=== PATIENT | female | born 1945 | race Caucasian/White ===

== ENCOUNTER → 2018-10-28 | Outpatient (CLI) | payer MEDICARE, OTHER ==
[2018-10-28] VITALS (14 sets, daily range): BP systolic 105–166; BP diastolic 50–76; PULSE 61–82
[~2018-10-28] VITALS: Ht 162.6 cm; Wt 53.6 kg
[~2018-10-28] MED LIST: GLUCOPHAGE500 MG/TAB PO; HCTZ 25MG TAB25 MG PO; NORVASC 5MG5 MG/TAB PO; PERCOCET 325 MG1 TA2 PO; TOPROL XL 25MG25 MG PO; ZOCOR 20MG20 MG PO
--- NOTE | 2018-10-28 12:40 | NUR ---
Marlene DIAL, informed Dr Breaux of pts blood pressure. states Ok to proceed.
--- NOTE | 2018-10-28 13:15 | NUR ---
pt to ct per wheelchair. Pt positioned in prone position on table. Monitors applied and O2 on at 2l/nc.
--- NOTE | 2018-10-28 13:25 | NUR ---
Dr Breaux into see pt. Dr Breaux talks with pt.
--- NOTE | 2018-10-28 13:42 | NUR ---
Specimens obtained by Dr Breaux and placed in formalin and RPMI. Specimens labeled.
== END ==
LOC: COL.RAD 12:19
DX: E27.9 Disorder of adrenal gland, unspecified (principal)

== ENCOUNTER → 2018-10-29 | Outpatient (CLI) | payer MEDICARE, OTHER ==
--- NOTE | 2018-10-28 12:35 | NUR ---
DR ACN WAS INFORMED OF BLOOD PRESSURE 166/86 AND HEART RATE 86. NO NEW ORDERS.
== END ==
LOC: COL.RAD 14:13
DX: C34.90 Malignant neoplasm of unspecified part of unspecified bronchus or lung (principal); J44.9 Chronic obstructive pulmonary disease, unspecified; E27.8 Other specified disorders of adrenal gland
CPT/HCPCS: A9585

== ENCOUNTER → 2019-09-26 | Outpatient (CLI) | payer MEDICARE ==
[~2019-09-26] VITALS: Ht 162.6 cm; Wt 52.1 kg
[2019-09-26] VITALS (13 sets, daily range): BP systolic 102–136; BP diastolic 48–83; PULSE 94–110
[~2019-09-26] MED LIST changes: +B-121000 MCG PO; +COLACE 100100 MG/CAP PO; +FOLIC ACID 11 MG/TA1 PO
--- NOTE | 2019-09-26 13:40 | NUR ---
pt to ct per wheelchair, pt positioned in prone position on ct table. O2 on at 2l/nc. Monitors applied.
--- NOTE | 2019-09-26 14:12 | NUR ---
specimen obtained and placed in formalin by Dr Mares. Specimen labeled.
== END ==
LOC: COL.RAD 12:33
DX: C34.11 Malignant neoplasm of upper lobe, right bronchus or lung (principal); E27.8 Other specified disorders of adrenal gland
CPT/HCPCS: 32107

== ENCOUNTER 2020-04-16 16:25 | Inpatient (IN) | payer MEDICARE ==
[~2020-04-16] VITALS: Ht 160 cm; Wt 45.5 kg
[2020-04-16 17:07] LABS: ARTERIAL BLD GAS O2 SATURATION 91.5 % (92-100); ARTERIAL BLOOD GAS BASE EXCESS 5.1 (-2-2); ARTERIAL BLOOD GAS HCO3 28.8 meq/L (22-26); ARTERIAL BLOOD GAS PCO2 38.9 mmHg (35-45); ARTERIAL BLOOD GAS PO2 65.1 mmHg (80-100); ARTERIAL BLOOD GAS pH 7.49 (7.35-7.45)
[2020-04-16 17:30] LABS: MEAN CELL VOLUME 89 fl (80.0-100.0); MEAN CORPUSCULAR HGB CONC 31 g/dl (33.0-37.0); MEAN PLATELET VOLUME 9.1 fl (7.4-10.4); PLATELET COUNT 413 K/mm3 (130-400); RED BLOOD COUNT 2.86 M/mm3 (4.10-5.30); REDCELL DISTRIBUTION WIDTH-CV 21.7 % (11.5-14.5)
[2020-04-16 17:33] LABS: HEMATOCRIT 25.3 % (37.0-47.0); HEMOGLOBIN 7.8 g/dl (12.5-16.0); MEAN CORPUSCULAR HEMOGLOBIN 27 pg (27.0-31.0)
[2020-04-16 17:36] LABS: INR 1.5 (0.8-3.0); PROTHROMBIN TIME 16.9 SECONDS (9.7-12.8)
[2020-04-16 17:38] LABS: PARTIAL THROMBOPLASTIN TIME 38.9 SECONDS (26.0-37.0)
[2020-04-16 17:43] LABS: ALBUMIN 3.8 gm/dL (3.5-5.0); BILIRUBIN,TOTAL 0.8 mg/dL (0.0-1.0); CALCIUM 9.2 mg/dL (8.4-10.2); CREATININE, serum 0.54 (0.52-1.25); POTASSIUM 4.3 mmol/L (3.4-5.0)
[2020-04-16 17:49] LABS: ANISOCYTOSIS 3+; BAND 8 % (0-10); LYMPHOCYTE 3 % (20.0-51.0); NEUTROPHILS 85 % (42.0-75.2); PLATELET ESTIMATE INCREASED (NORMAL)
[2020-04-16 17:50] LABS: HYPOCHROMIA 2+; OVALOCYTES 1+; STOMATOCYTE 2+; TARGET CELLS 1+
[2020-04-16 17:55] LABS: C-REACTIVE PROTEIN 26.8 mg/dL (0.0-0.9); TROPONIN-I 0.324 ng/mL (0.000-0.035)
[2020-04-16 22:00] LABS: COLLECTION METHOD CLEAN CATCH
[2020-04-16 22:12] LABS: MUCOUS Present /lpf; PH 6 (5-8); SQUAMOUS EPITHELIAL 0-2 /hpf; URINE APPEARANCE Cloudy; URINE BACTERIA Rare /hpf; URINE BILIRUBIN Negative (NEGATIVE); URINE BLOOD Negative (NEGATIVE); URINE COLOR Yellow; URINE GLUCOSE Negative (NEGATIVE); URINE KETONE Negative (NEGATIVE); URINE LEUKOCYTE ESTERASE 3+ (NEGATIVE); URINE NITRATE Negative (NEGATIVE); URINE PROTEIN(semi-quant) 1+ (NEGATIVE); URINE RBC >50 /hpf; URINE UROBILINOGEN Negative (NEGATIVE)
[2020-04-17] VITALS (334 sets, daily range): BP systolic 105–126; BP diastolic 52–69; PULSE 98–114; TEMP 98.5–99.4; O2SAT 80–99
--- NOTE | 2020-04-17 11:52 | NUR ---
Patient arrives to ICU 8 via stretcher from ED. Stands and transfers self to bed. Monitors applied and call light given. Heparin infusing per pump.
--- NOTE | 2020-04-17 12:30 | NUR ---
Spoke with Vania Bruce about patient's Heparin infusion and HepXA results. Heparin infusing at 150 units/hour on admission to ICU, HepXA at 1049 = 0.0. Pharmacy recommends rebolus with 1,000 units and start infusion at 600 units/hour and check HepXA in 6 hours.
[2020-04-17 15:40] LABS: BASO % 0.3 % (0.0-2.0); EOS # 0.2 (0.0-0.7); GRAN # 13.6 (1.4-6.5); GRAN % 86.3 % (42.2-75.2); LYMPH # 0.6 (1.2-3.4); LYMPH % 3.5 % (20.0-51.0); MEAN CELL VOLUME 90 fl (80.0-100.0); MEAN CORPUSCULAR HGB CONC 30 g/dl (33.0-37.0); MEAN PLATELET VOLUME 9.1 fl (7.4-10.4); MONO # 1.3 (0.1-0.6); MONO % 8.4 % (1.7-9.3); PLATELET COUNT 475 K/mm3 (130-400); REDCELL DISTRIBUTION WIDTH-CV 21.5 % (11.5-14.5)
--- NOTE | 2020-04-17 15:40 | NUR ---
Vancomycin Initial Dosing Pharmacy Note Ordering provider: Jose Manuel Garg MD Indication/duration: uti,rt hilar/rul mass w/ collapse, 7 days LABS: SCr 0.54, CrCl~41, GFR 110 Recommendation: Will continue with Vancomycin 750 mg IV q12h. Pharmacy will continue to monitor and check a Vancomycin trough on 04/19/20. Loading dose: 1.5 grams Maintenance dose: 750 mg every 12 hours Trough goal: 15-20 ug/mL
[2020-04-17 15:43] LABS: HEMATOCRIT 23.5 % (37.0-47.0); HEMOGLOBIN 7.1 g/dl (12.5-16.0); MEAN CORPUSCULAR HEMOGLOBIN 27 pg (27.0-31.0)
[2020-04-17 15:52] LABS: CALCIUM 8.4 mg/dL (8.4-10.2); CREATININE, serum 0.35 (0.52-1.25); POTASSIUM 4.1 mmol/L (3.4-5.0)
--- NOTE | 2020-04-17 21:00 | NUR ---
Updated family via telephone regarding patient status. All questions and concerns addressed at this time.
[2020-04-18] VITALS (595 sets, daily range): BP systolic 111–149; BP diastolic 52–78; PULSE 59–125; TEMP 97.6–98.9; O2SAT 84–100
--- NOTE | 2020-04-18 01:24 | NUR ---
Picked up unit of PRBC from lab. [employer] system is currenlty on down time. Unit verified per protocol with labor commissioner.
--- NOTE | 2020-04-18 01:28 | NUR ---
Transfusion of 1 PRBC initiated; verified by two RN's at bedside. Patient alert and oriented in no distress. Will continue to monitor at bedside.
--- NOTE | 2020-04-18 02:11 | NUR ---
Discussed with hospitalist regarding patient status; patient has course lung sounds in bases and is short of breath with tachycardia. Patient does not appear to be in distress No new orders at this time. Plan for thoracentesis in the morning.
--- NOTE | 2020-04-18 02:30 | NUR ---
Resting in bed; VS stable. No signs of infusion complications at this time. Will continue to monitor.
[2020-04-18 03:17] LABS: HEMOGLOBIN 6.6 g/dl (12.5-16.0)
[2020-04-18 03:18] LABS: HEMATOCRIT 21.9 % (37.0-47.0)
--- NOTE | 2020-04-18 03:45 | NUR ---
Lab notified nurse that hospitalist put order in for 1 unit of irradiated PRBC's, however patient is currenlty receiving infusion with non-irradiated PRBC's. This nurse received a telephone order for 1 unit PRBC's with no specification for irradiated cells. [employer] was down at the time the telephone order was received. Hospitalist had back ordered the unit of irradiated cells into the computer when meditech was available again. Hospitalist notified; no further orders will continue to monitor for and transfusion related reactions.
--- NOTE | 2020-04-18 04:57 | NUR ---
Transfusion complete; Patient tolerated well. No concerns at this time.
[2020-04-18 05:49] LABS: BASO # 0.1 (0.0-0.2); BASO % 0.4 % (0.0-2.0); EOS # 0.1 (0.0-0.7); GRAN # 10.3 (1.4-6.5); LYMPH # 0.5 (1.2-3.4); LYMPH % 4.2 % (20.0-51.0); MEAN CELL VOLUME 89 fl (80.0-100.0); MEAN CORPUSCULAR HGB CONC 32 g/dl (33.0-37.0); MEAN PLATELET VOLUME 8.8 fl (7.4-10.4); MONO # 1.4 (0.1-0.6); MONO % 10.9 % (1.7-9.3); PLATELET COUNT 496 K/mm3 (130-400); RED BLOOD COUNT 2.85 M/mm3 (4.10-5.30); REDCELL DISTRIBUTION WIDTH-CV 18.9 % (11.5-14.5)
[2020-04-18 05:55] LABS: HEMATOCRIT 25.3 % (37.0-47.0); MEAN CORPUSCULAR HEMOGLOBIN 28 pg (27.0-31.0)
[2020-04-18 06:00] LABS: CREATININE, serum 0.29 (0.52-1.25); POTASSIUM 3.7 mmol/L (3.4-5.0)
--- NOTE | 2020-04-18 09:09 | NUR ---
A palliative care consult was ordered for the patient. Entry Level Account Representative contacted Sofya Sow, Palliative Care nurse and she will visit with the patient this day.
--- NOTE | 2020-04-18 10:00 | NUR ---
To US via wheelchair with tech for scheduled thoracentesis with Radiologist
[2020-04-18 11:23] LABS: PLEURAL FLUID RBC 2000 /mm3 (0-0); PLEURAL FLUID WBC 3625 /mm3
[2020-04-18 11:30] LABS: PLEURAL FLUID APPEARANCE HAZY; PLEURAL FLUID COLOR YELLOW
[2020-04-18 12:09] LABS: GLUCOSE,PLEURAL FLUID 94 mg/dL; TOTAL PROTEIN,PLEURAL FLUID 3.6 gm/dL
--- NOTE | 2020-04-18 12:24 | NUR ---
Initial visit; Patient thanked Pacs Specialist for looking in on her, offering God's blessings and keeping her in Pacs Specialist's prayers.
--- NOTE | 2020-04-18 12:46 | NUR ---
Met with pt over lunch today. Lisa is a very positive and upbeat person upon presentation who is dealing with the loss of her in February of this year along with her lung cancer which is no longer responding to Gemzar very well. She reports that Dr Lopez had told her that they would wait for the next PET scan. Her granddaughter is living with her in [place] and has been there about 4 months. She provides care and assistance including driving her to her appointments. Her daughter lives in [place] and is an RN. Her son lives in [place]. She reports getting support not only from family but also from her fellow oncology patients that she sees every week at Dr Lopez's infusion room. She recognizes that her cancer has progressed some and that at some point she will not be able to continue chemotherapy and that her will follow this but at this point she would choose to continue with chemotherapy if it is an option for her. She enjoys reading and watching TV at home and enjoys talking with her family members. We did talk briefly about her fluid on the lung and that if this were to continue to be a problem, that there is a drainage tube that could be placed to allow her to drain this fluid at home when needed. She was asked if she would want to change the direction of her care to focus more on comfort vs treatment and at this time, she would wish to continue with treatment. She was tiring from talking and trying to eat her lunch, so I told her we could talk more tomorrow.
--- NOTE | 2020-04-18 13:36 | NUR ---
Tool Filer Hand attempted to meet with the patient to complete intake. The patient is very tired and was hard to rouse. SW contacted the patient's granddaughter, Juliana Nowak #[phone] to complete intake. The patient lives in [place] with Juliana. Juliana lives there for support as needed. The patient's on March 09 of this year. The patient has a cane and walker that belonged to but she does not need them. She is independent. Per EMR the patient's PCP is Dr. Dorado and the patient sees Dr. Lopez for weekly (Wednesdays) chemo treatments. The [facility] in [place]. The patient does not have advanced directives. The patient has two living children, Roma and Charlie, #[phone] and #[phone], respectively. They do not live locally. Roma lives in [place], [place] and Charlie in [place]. The current discharge plan is for the patient to return home with Juliana. PT/OT ordered for the patient.
[2020-04-18 17:32] LABS: HEMATOCRIT 24.1 % (37.0-47.0); HEMOGLOBIN 7.7 g/dl (12.5-16.0)
[2020-04-19] VITALS (421 sets, daily range): BP systolic 132–143; BP diastolic 63–83; PULSE 93–110; TEMP 97.8–98.3; O2SAT 81–98
[2020-04-19 04:22] LABS: BASO % 0.3 % (0.0-2.0); EOS # 0.1 (0.0-0.7); EOS % 1.1 % (0-4.0); GRAN # 8.3 (1.4-6.5); GRAN % 81.1 % (42.2-75.2); LYMPH # 0.6 (1.2-3.4); LYMPH % 5.5 % (20.0-51.0); MEAN CELL VOLUME 90 fl (80.0-100.0); MEAN CORPUSCULAR HGB CONC 32 g/dl (33.0-37.0); MEAN PLATELET VOLUME 8.6 fl (7.4-10.4); MONO # 1.2 (0.1-0.6); MONO % 11.3 % (1.7-9.3); PLATELET COUNT 532 K/mm3 (130-400); RED BLOOD COUNT 2.52 M/mm3 (4.10-5.30); REDCELL DISTRIBUTION WIDTH-CV 19.5 % (11.5-14.5)
[2020-04-19 04:23] LABS: HEMATOCRIT 22.7 % (37.0-47.0); HEMOGLOBIN 7.2 g/dl (12.5-16.0); MEAN CORPUSCULAR HEMOGLOBIN 29 pg (27.0-31.0)
[2020-04-19 04:37] LABS: CREATININE, serum 0.26 (0.52-1.25); POTASSIUM 3.1 mmol/L (3.4-5.0)
[2020-04-19 14:21] LABS: HEMATOCRIT 22.4 % (37.0-47.0); HEMOGLOBIN 7.1 g/dl (12.5-16.0)
--- NOTE | 2020-04-19 14:45 | NUR ---
Met with patient at bedside and then briefly with her granddaughter, Juliana, who had just arrived. Pt reports that overall she is feeling better. She did not sleep well last night but has been dozing through the day. Lisa did tell me that she had a DPOA-HC completed at [facility]. She said it probably named her and then her daughter as decision makers as DPOA-HC. I talked with Erna about this and she is calling to try to get copy for pt's records here. Pt does report that she would consider home health at discharge, especially since she is thinking that she would probably need 02 at home now. Is feeling weaker than her "usual" and would be open to PT/OT to help her regain her strength. At this point she denies further needs. Will continue to follow.
--- NOTE | 2020-04-19 14:49 | NUR ---
Warehouse Driver met with the patient and the patient's granddaughter, Juliana to revisit the discharge plan. The plan is to return home with Juliana. SW discussed the benefits of home health services and provided Medicare.[facility]'s list of agencies that serve the [facility]. The patient is undecided if she wants home health. ALONSO collaborated the above information with the patient's nurse.
--- NOTE | 2020-04-19 16:40 | NUR ---
Bedside report given to JAYRO Guevara Pt and belongings transferred to Surgical room 324 via acc by RN.
--- NOTE | 2020-04-19 16:45 | NUR ---
PATIENT ARRIVED TO ROOM 324 VIA WHEELCHAIR FROM ICU 8. PATIENT SETTELED INTO ROOM. 02 VIA NASAL CANNULA AT 3L. PATIENT IV ABX INFUSING TO RIGHT CHEST PORTACATH. TELE IN PLACE. CALL LIGHT WITHIN REACH. PATIENT DENIES ANY NEEDS AT THIS TIME.
--- NOTE | 2020-04-19 18:20 | NUR ---
FRANKIE GAY CALLED AND NOTIFIED OF THE PATIENTS VANC TROUGH RESULT OF 6.0. NO VANC IS CURRENTLY ON THE PATIENTS EMAR. NO ORDERS GIVEN AT THIS TIME.
--- NOTE | 2020-04-19 20:50 | NUR ---
Pt. sitting up in bed watching TV at this time. Pt. is A&OX3, assessment complete. INT to lt. forearm patent, PORT to rt. chest patent. Pt. denies pain or other needs, call light within reach.
[2020-04-20] VITALS (11 sets, daily range): BP systolic 106–156; BP diastolic 57–84; PULSE 80–103; TEMP 97.3–98.2
--- NOTE | 2020-04-20 07:30 | NUR ---
Patient reports shortness of air. Vss. O2 stats stable with 3L O2. Notified hospitalsit . Breathing treatment ordered & RT notifed.
[2020-04-20 07:46] LABS: BASO % 0.3 % (0.0-2.0); EOS # 0.2 (0.0-0.7); GRAN # 8.4 (1.4-6.5); GRAN % 78.3 % (42.2-75.2); LYMPH # 0.8 (1.2-3.4); LYMPH % 7.2 % (20.0-51.0); MEAN CELL VOLUME 91 fl (80.0-100.0); MEAN CORPUSCULAR HGB CONC 31 g/dl (33.0-37.0); MEAN PLATELET VOLUME 8.5 fl (7.4-10.4); MONO # 1.2 (0.1-0.6); MONO % 11.5 % (1.7-9.3); PLATELET COUNT 616 K/mm3 (130-400); RED BLOOD COUNT 2.48 M/mm3 (4.10-5.30); REDCELL DISTRIBUTION WIDTH-CV 19.6 % (11.5-14.5)
[2020-04-20 07:55] LABS: CALCIUM 8.5 mg/dL (8.4-10.2); CREATININE, serum 0.23 (0.52-1.25); MAGNESIUM 1.6 mg/dL (1.6-2.3); POTASSIUM 3.1 mmol/L (3.4-5.0)
[2020-04-20 08:11] LABS: HEMATOCRIT 22.6 % (37.0-47.0); MEAN CORPUSCULAR HEMOGLOBIN 28 pg (27.0-31.0)
--- NOTE | 2020-04-20 08:15 | NUR ---
Patient resting in bed with complaints of shortness of breath and pain in her back. We got patient some pain medication. Patient got up to use the bathroom with assisstance. Patient was incontinent of stool in breif. New foam dressing was placed on Coccyx. Will make sure to reposition and continue to monitor. Stool was black. Patient sat in chair and requested oatmeal for breakfast.
--- NOTE | 2020-04-20 11:38 | NUR ---
Patient is up in chair and reports feeling much better. Breathing is slower and unlabored.
--- NOTE | 2020-04-20 13:40 | NUR ---
Hospitalist team rounded, plan of care reviewed. verified to given LRBC - did not order for it to be irratated.
--- NOTE | 2020-04-20 14:45 | NUR ---
Spoke with Mel Nance. Patient granddaughter reports patient had chemo [address] Virgen again verified to given LRBC-not irratiated.
--- NOTE | 2020-04-20 15:03 | NUR ---
rounded and reviewed plan of care. Started a blood transfusion following protocol. Patient's grandaughter has been at bedside. Patient has no complaints or concers.
--- NOTE | 2020-04-20 15:29 | NUR ---
In to see Lisa today. She reports not feeling quite as good today with some shortness of breath and also some discomfort at IV site and on her bottom. She reports that the hospitalist today talked with her daughter by phone and her daughter is going to come up from [place] to see her. While yesterday she was very happy and calm, today she appears more tense and concerned. yesterday she told me that the bone mets, adrenal lesion all had been present almost from her diagnosis so she was not too concerned. I think today she has seen these things differently. Will follow up on Thursday to see her daughter and what they are thinking together.
--- NOTE | 2020-04-20 16:24 | NUR ---
Senior Business Development Manager followed up with patient and patient's granddaughter about Home Health. Patient states she is still discussing plans with her daughter and has not made any decisions at this time. SW to continue to follow.
--- NOTE | 2020-04-20 18:18 | NUR ---
Ended blood transfusion. Patient tolerated transfusion well with no complaints. Patient eating dinner. Gave patient pain medication.
[2020-04-20 20:10] LABS: HEMATOCRIT 26.1 % (37.0-47.0); HEMOGLOBIN 8.3 g/dl (12.5-16.0)
[2020-04-21] VITALS: BP 135/67; PULSE 91; TEMP 97.9
[2020-04-21 04:00] VITALS: BP 149/72; PULSE 105; TEMP 97.8
--- NOTE | 2020-04-21 06:54 | NUR ---
report given to Rayne, and JAYRO Robert.
[2020-04-21 07:59] LABS: BASO # 0.1 (0.0-0.2); BASO % 0.5 % (0.0-2.0); EOS # 0.4 (0.0-0.7); EOS % 3.4 % (0-4.0); GRAN # 7.9 (1.4-6.5); GRAN % 76.9 % (42.2-75.2); LYMPH # 0.7 (1.2-3.4); LYMPH % 6.9 % (20.0-51.0); MEAN CELL VOLUME 91 fl (80.0-100.0); MEAN CORPUSCULAR HGB CONC 32 g/dl (33.0-37.0); MEAN PLATELET VOLUME 8.7 fl (7.4-10.4); MONO # 1.2 (0.1-0.6); MONO % 11.7 % (1.7-9.3); PLATELET COUNT 569 K/mm3 (130-400); RED BLOOD COUNT 2.98 M/mm3 (4.10-5.30); REDCELL DISTRIBUTION WIDTH-CV 18.5 % (11.5-14.5)
[2020-04-21 08:04] VITALS: BP 133/93; PULSE 97; TEMP 98
[2020-04-21 08:11] LABS: CALCIUM 8.5 mg/dL (8.4-10.2); CREATININE, serum 0.25 (0.52-1.25); POTASSIUM 3.7 mmol/L (3.4-5.0)
[2020-04-21 08:23] LABS: HEMATOCRIT 27.2 % (37.0-47.0); HEMOGLOBIN 8.7 g/dl (12.5-16.0); MEAN CORPUSCULAR HEMOGLOBIN 29 pg (27.0-31.0)
--- NOTE | 2020-04-21 11:00 | NUR ---
Patient resting in bed. Got up to use bedside commode. Daughter is coming in from [place] to help make decision about her plan of care. Called malt house operator and got permission for an extra visitor.
[2020-04-21 12:02] VITALS: BP 110/58; PULSE 90; TEMP 98.2
--- NOTE | 2020-04-21 16:17 | NUR ---
Patient up to chair. She is in good spirits. Steady gait with walker. SHe used commode & voided, no stool. She seems stronger today. Granddaughter visitied this afternoon. Assisted with full bed bath & fresh linens. Will monitor.
[2020-04-21 16:26] VITALS: BP 139/67; PULSE 91; TEMP 97.9
--- NOTE | 2020-04-21 18:51 | NUR ---
Patient had another loose stool. She did well with dinner. Resting in bed. Will report off to night nurse.
[2020-04-21 19:34] VITALS: BP 153/80; PULSE 115; TEMP 98.3
--- NOTE | 2020-04-21 21:17 | NUR ---
PT IN BED. IS ALERT AND ORIENTED X4. HAS RT PORT ACCESSED, FLUSHES WELL WITH GOOD BLOOD RETURN. SL TO LEFT FOREARM PAINFUL TO FLUSH, DC'D. TAKES HS MEDS INCLUDING PERCOCET 1 TAB FOR PAIN TO LEFT LOWER BACK. ASSISTED TO BSC, VOIDS AND BACK TO BED. WEARING OXYGEN AT 2L/NC. HAS MEPILEX TO COCCYX.
[2020-04-22] VITALS: BP 127/63; PULSE 101; TEMP 98
[2020-04-22 04:00] VITALS: BP 147/63; PULSE 97; TEMP 98.8
--- NOTE | 2020-04-22 05:30 | NUR ---
ASSISTED TO BSC, VOIDS AND BACK TO BED WITH NOTED SHORTNESS OF BREATH. REPORTS HAVING A GOOD NIGHT SLEEP.
[2020-04-22 07:30] VITALS: BP 149/70; PULSE 107; TEMP 98.4
[2020-04-22 12:26] VITALS: BP 137/73; PULSE 103; TEMP 99.1
--- NOTE | 2020-04-22 16:11 | NUR ---
SW was called to assist patient and granddaughter with questions they had in regards to home health services. Granddaughter Juliana stated that they had decided that they would like to proceed with home health services through [facility]. Granddaughter also stated that upon discharge patient would be needing a bedside commode as well as O2. ALONSO provided documentation will be faxed over to agency for review. ALONSO faxed patient information to [facility] home health for review. ALONSO will continue to follow.
[2020-04-22 17:20] VITALS: BP 140/75; PULSE 97; TEMP 98.6
[2020-04-22 20:00] VITALS: BP 112/57; PULSE 95; TEMP 97.6
--- NOTE | 2020-04-22 22:00 | NUR ---
PT IN BED, HAS BEEN UP TO BSC SEVERAL TIMES TO URINATE. IS ALERT AND ORIENTED X4. HAS RT PORT THAT FLUSHES WELL. TAKES PERCOCET AT THIS TIME FOR BACK PAIN. WEARING OXYGEN AT 2L/NC, DYSPNEA WITH ACTIVITY. SCDS APPLIED.
[2020-04-23] VITALS (15 sets, daily range): BP systolic 115–138; BP diastolic 49–70; PULSE 82–226; TEMP 97.8–98.7
--- NOTE | 2020-04-23 05:00 | NUR ---
LAB WORK DRAWN FROM RT PORT. PT HAS BEEN UP TO BSC WITH ONE ASSIST THIS SHIFT. OFFERS NO CONCERNS AT THIS TIME.
[2020-04-23] MEDS ORDERED: PLAVIX 75MG TAB75 MG PO (08:09)
[2020-04-23] MEDS ORDERED: PROTONIX 40MG T40 MG PO (08:10)
[2020-04-23 09:01] LABS: BASO % 0.5 % (0.0-2.0); EOS # 0.3 (0.0-0.7); EOS % 4.3 % (0-4.0); GRAN # 5.4 (1.4-6.5); GRAN % 68.4 % (42.2-75.2); LYMPH # 0.9 (1.2-3.4); LYMPH % 11.3 % (20.0-51.0); MEAN CELL VOLUME 90 fl (80.0-100.0); MEAN CORPUSCULAR HGB CONC 32 g/dl (33.0-37.0); MEAN PLATELET VOLUME 8.7 fl (7.4-10.4); MONO # 1.2 (0.1-0.6); MONO % 14.9 % (1.7-9.3); PLATELET COUNT 556 K/mm3 (130-400); RED BLOOD COUNT 3.26 M/mm3 (4.10-5.30); REDCELL DISTRIBUTION WIDTH-CV 17.9 % (11.5-14.5)
[2020-04-23 09:07] LABS: CREATININE, serum 0.34 (0.52-1.25); HEMATOCRIT 29.3 % (37.0-47.0); HEMOGLOBIN 9.3 g/dl (12.5-16.0); MEAN CORPUSCULAR HEMOGLOBIN 29 pg (27.0-31.0); POTASSIUM 3.9 mmol/L (3.4-5.0)
--- NOTE | 2020-04-23 09:58 | NUR ---
The patient is ready to d/c today. ALONSO followed up with Lindy at [facility] on status of referral. Lindy reports that they did not receive the referral. ALONSO refaxed Lindy the referral. The patient also qualified for home oxygen. ALONSO met with the patient to review d/c plan and the oxygen. The patient confirms that the plan is for her to return home with her granddaughter, Juliana, and home health. The patient was agreeable to getting the oxygen at [facility]. ALONSO presented and read the IM form outloud to the patient. The patient verbalized understanding and gave ALONSO approval to sign the form on her behalf. ALONSO provided her with a copy. ALONSO contacted and faxed the patient's oxygen order to Phong at [facility]. ALONSO then received a phone call from the patient's granddaughter, Juliana. Juliana is agreeable to the d/c and the above plan. ALONSO awaiting [facility] screen and delivery of oxygen.
--- NOTE | 2020-04-23 10:37 | NUR ---
Met withi patient this morning at bedside. She reports that her daughter is coming to visit her a little later and she is going home with home health today. Her granddaughter will be her caregiver. It is working out well for her to use oxygen and she feels she can manage it at home. She will talk with Dr Lopez in the next week to determine where we go from here.
--- NOTE | 2020-04-23 11:12 | NUR ---
First visit from the local government legislator. No needs right now.
--- NOTE | 2020-04-23 11:45 | NUR ---
TELE CALLED, PATIENT HR BOUNCING BETWEEN 106-125. PATIENT SLEEPING. NO C/O CHEST PAIN. PATIENT DID MENTION C/O SOA. PATIENT IS ON 2L PER NC WITH SATS IN MID 90'S. HOSPITALIST NOTIFIED. EKG SHOWED A-FIB/RVR
--- NOTE | 2020-04-23 11:50 | NUR ---
PATIENT GIVEN CARDIZEM BOLUS. HOSPITALIST AT BEDSIDE. HR NOW IN 90'S. VSS. WILL CONTINUE TO MONITOR ON TELE. PATIENT STILL DENIES CHEST PAIN.
--- NOTE | 2020-04-23 11:53 | NUR ---
Lindy, at [facility], reports that they are able to accept the patient for services. The patient went into Afib w/RVR this morning and will be transferred down to the ICU now. SW notified Lindy at [facility] and Phong at [facility]. SW contacted and updated the patient's granddaughter, Juliana. SW to continue to follow.
--- NOTE | 2020-04-23 14:01 | NUR ---
Initial visit; Patient states she didn't know she wasn't doing very well, but she is on her way to the ICU Unit. Sock Boarder wished her well and offered God's blessings.
--- NOTE | 2020-04-23 14:22 | NUR ---
Spoke with Dr. Montgomery about patient condition. On the tele monitor pt remains SR less that 110 with occasional PACs that make rhythm appear irregular. Asked if pt needs to transfer to [facility] for Cardizem gtt if in sinus rhythm. Recieved orders to start Cardizem 60mg BID and Dr. Zavala will see the patient after he finishes his current procedure. The patient may need additional medication adjustments per Dr Zavala. Spoke with Jodi DIAL about the plan. Pt remians stable and is currently ambulating to the bathroom with no issue.
--- NOTE | 2020-04-23 15:30 | NUR ---
REPORTED OFF TO JAYRO CHAPMAN.
--- NOTE | 2020-04-23 19:18 | NUR ---
Took over for patient at 1530. Patient has been resting most the afternoon. Minimal complaints of pain, no complaints of nausea. She went into afib again, Notified Denae León APRN. Patient is back in sinus rhythm now though. Denae said to let her know if she converts again. Passed on to community affairs director JAYRO Miranda. No other changes at this time. Call light within reach. Patient is getting back to bed from the bathroom.
[2020-04-24] VITALS (7 sets, daily range): BP systolic 19–119; BP diastolic 42–54; PULSE 78–135; TEMP 97.5–98.4
--- NOTE | 2020-04-24 03:13 | NUR ---
At the beginning of the shift I was told in report that pt was AFib and Julieta the hospitalist was notified. Pt went back into sinus rhythm. I received a call from Tele at 300 that pt was AFib RVR. Dr. Figueroa was notified at this time. He stated he was aware of the pt condition earlier and he wanted her to have 60 mg of Cardizem PO. Pt is currently sitting up in bed. Pt was headed back to bed with the aide from the restroom when she went back into AFib. Order has been placed and pt has been informed on the change. She has her call light within reach.
--- NOTE | 2020-04-24 03:25 | NUR ---
Pt currently sitting up in bed. Pt was given the now dose of Cardizem 60mg PO. Pt has her call light within reach and her bed is in lowest position.
[2020-04-24 07:20] LABS: BASO # 0.1 (0.0-0.2); BASO % 0.7 % (0.0-2.0); EOS # 0.3 (0.0-0.7); EOS % 4.6 % (0-4.0); GRAN # 4.5 (1.4-6.5); GRAN % 63.1 % (42.2-75.2); LYMPH # 1.1 (1.2-3.4); LYMPH % 14.9 % (20.0-51.0); MEAN CELL VOLUME 89 fl (80.0-100.0); MEAN CORPUSCULAR HGB CONC 32 g/dl (33.0-37.0); MEAN PLATELET VOLUME 8.3 fl (7.4-10.4); MONO # 1.1 (0.1-0.6); PLATELET COUNT 543 K/mm3 (130-400); RED BLOOD COUNT 3.21 M/mm3 (4.10-5.30); REDCELL DISTRIBUTION WIDTH-CV 17.8 % (11.5-14.5)
[2020-04-24 07:23] LABS: HEMATOCRIT 28.4 % (37.0-47.0); MEAN CORPUSCULAR HEMOGLOBIN 28 pg (27.0-31.0)
[2020-04-24 07:40] LABS: CALCIUM 8.7 mg/dL (8.4-10.2); CREATININE, serum 0.32 (0.52-1.25); POTASSIUM 3.8 mmol/L (3.4-5.0)
--- NOTE | 2020-04-24 08:06 | NUR ---
PT SITTING UP IN BED, REPORTING PAIN IN BACK OF 7/10. PO MEDS GIVEN ORDERED. PO KCL GIVEN PER PARAMETERS. VSS AT THIS TIME. TELE INPLACE.
[2020-04-24] MEDS ORDERED: CARDIZEM 60MG T60 MG PO (08:23)
[2020-04-24] MEDS ORDERED: ZOCOR 10MG10 MG PO (08:52)
[2020-04-24] MEDS ORDERED: CARDIZEM 90MG T90 MG PO (11:12)
[2020-04-24] MEDS ORDERED: OXYGEN NAS (11:38)
--- NOTE | 2020-04-24 11:41 | NUR ---
The patient is ready to d/c today. A repeat exercise ox was performed. The patient still qualifies for 2 liters of continuous oxygen. ALONSO notified and faxed the updated exercise ox and progress notes to [place] at [facility]. [facility] plans to deliver a portable oxygen tank to the patient's room today. ALONSO notified the patient's RN. ALONSO contacted and updated the patient's granddaughter, Juliana. The patient is to discharge back home with her granddaughter today, 04/24, with home health services for custodial/PT/OT through [facility]. ALONSO attempted to notify Lindy at [facility]. ALONSO left her a voicemail and faxed over the d/c orders. No additional needs at this time.
--- NOTE | 2020-04-24 13:15 | NUR ---
PORT DEACESSED AFTER FLUSHING WITH HEPARIN,PT TOLERATED WELL.
--- NOTE | 2020-04-24 14:31 | NUR ---
DISCHARGE INSTRUCTIONS REVIEWED WITH PT AND FAMILY. QUESTIONS ANSWERED PT TAKEN TO FRONT IN WHEEL CHAIR BY STAFF.
== END 2020-04-24 14:15 | disposition home health service (06) | DRG 871 ==
LOC: COL.ER 16:25 → ICU 04-17 07:41 → SURG 04-19 16:51
PROVIDERS: Emergency Medicine; Nurse Practitioner Family; Physician Assistant; ADMIT Hospitalist
PROC: 0W993ZZ Drainage of Right Pleural Cavity, Percutaneous Approach (ICD-10-PCS; principal; 2020-04-17)
DX: A41.51 Sepsis due to Escherichia coli [E. coli] (principal); I21.4 Non-ST elevation (NSTEMI) myocardial infarction; J96.01 Acute respiratory failure with hypoxia; E43 Unspecified severe protein-calorie malnutrition; Z68.1 Body mass index [BMI] 19.9 or less, adult; N39.0 Urinary tract infection, site not specified; E87.1 Hypo-osmolality and hyponatremia; C79.71 Secondary malignant neoplasm of right adrenal gland; C79.51 Secondary malignant neoplasm of bone; C78.7 Secondary malignant neoplasm of liver and intrahepatic bile duct; K92.2 Gastrointestinal hemorrhage, unspecified; I48.91 Unspecified atrial fibrillation; E83.42 Hypomagnesemia; E78.5 Hyperlipidemia, unspecified; E11.9 Type 2 diabetes mellitus without complications; J43.9 Emphysema, unspecified; Z20.828 Contact with and (suspected) exposure to other viral communicable diseases; D47.3 Essential (hemorrhagic) thrombocythemia; R53.81 Other malaise; D64.9 Anemia, unspecified; Z66 Do not resuscitate; Z79.84 Long term (current) use of oral hypoglycemic drugs; Z87.891 Personal history of nicotine dependence
CPT/HCPCS: 99223-AI; 99232-AI; 99233-AI; 99239; C9113; J0696; J1644; J2270; J2405; J2543; J3370; J3475; J3480; J7030; J7050; P9016; Q9967